=== PATIENT | male | born 1985 | race Caucasian/White ===

== ENCOUNTER 2017-05-05 10:06 | Emergency (ER) | payer OTHER ==
[2017-05-05 10:20] VITALS: BP 156/81
--- NOTE | 2017-05-05 10:23 | ER Document Report ---
Doctor's Note Notes: 05/05/17 10:23
[2017-05-05] MEDS ORDERED: PENICILLIN V POTASSIUM 500 MG TABLET PO ONE (10:30)
[2017-05-05] MEDS ORDERED: OXYCODONE-ACETAMINOPHEN 5-325 MG TABLET PO ONE (10:30)
--- NOTE | 2017-05-05 10:33 | ER Document Report ---
ED Oral Problem - General Chief Complaint: Toothache Stated Complaint: FACE SWELLING, TOOTH PAIN Time Seen by Provider: 05/05/17 10:29 Mode of Arrival: Ambulatory Information source: Patient TRAVEL OUTSIDE OF THE [place] IN LAST 30 DAYS: No COUNTRY TRAVELED TO/FROM: [facility] Patient complains to provider of: Swelling of face, Toothache Onset: Other - 3 days Onset: Gradual Quality of pain: Achy, Dull Severity: Moderate Pain Level: 3 Swollen jaw/face: Mild Associated symptoms: Chills, Dental decay, Toothache Similar symptoms previously: Yes Recently seen / treated by doctor/dentist: No Notes: Patient is a 31-year-old male who presents to the emergency room complaining of toothache with right-sided facial swelling that has been worsening over the past 3 days, he reports symptoms consistent with a fever last night although he did not take his temperature, he does report diffusely poor dentition, however has been unable to afford to follow-up with a dentist, denies any dental injury - Related Data Allergies/Adverse Reactions: No Known Allergies Allergy (Unverified 05/05/17 10:16) Past Medical History - General Information source: Patient - Social History Smoking Status: Current Every Day Smoker Chew tobacco use (# tins/day): No Frequency of alcohol use: None Drug Abuse: None Family History: Reviewed & Not Pertinent Patient has suicidal ideation: No Patient has homicidal ideation: No - Past Medical History Cardiac Medical History: Reports: Hx Hypertension Renal/ Medical History: Denies: Hx Peritoneal Dialysis Surgical Hx: Negative - Immunizations Hx Diphtheria, Pertussis, Tetanus Vaccination: Yes Review of Systems - Review of Systems Constitutional: See HPI EENT: See HPI Cardiovascular: No symptoms reported Respiratory: No symptoms reported Gastrointestinal: No symptoms reported Genitourinary: No symptoms reported Male Genitourinary: No symptoms reported Musculoskeletal: No symptoms reported Skin: No symptoms reported Hematologic/Lymphatic: No symptoms reported Neurological/Psychological: No symptoms reported -: Yes All other systems reviewed and negative Physical Exam - Vital signs Vitals: Temp Pulse Resp BP Pulse Ox 99.2 F 99 16 156/81 H 98 05/05/17 10:17 05/05/17 10:05/05/17 10:05/05/17 10:05/05/17 10:17 - Notes Notes: - General General appearance: Appears well, Alert In distress: None - HEENT Head: Normocephalic, Atraumatic Eyes: Normal Conjunctiva: Normal Extraocular movements intact: Yes Eyelashes: Normal Pupils: PERRL - Respiratory Respiratory status: No respiratory distress - Cardiovascular Rhythm: Regular - Abdominal Inspection: Normal - Back Back: Normal - Extremities General upper extremity: Normal inspection General lower extremity: Normal inspection - Neurological Neuro grossly intact: Yes Orientation: AAOx4 Magda Coma Scale Eye Opening: Spontaneous Magda Coma Scale Verbal: Oriented [place] Coma Scale Motor: Obeys Commands Magda Coma Scale Total: 15 - Psychological Associated symptoms: Normal affect, Normal mood - Skin Skin Temperature: Warm Skin Moisture: Dry Skin Color: Normal - HEENT Mouth/Lips: Caries Mucous membranes: Moist Teeth diagram: 1 - Diffusely poor dentition with multiple caries, blackish colored discoloration to teeth, erythema with gingival swelling fluctuance, no drainage Course - Re-evaluation Re-evalutation: 05/05/17 10:36 Symptoms consistent with dental infection, he was started on antibiotics and provided with pain medication as well as information for follow-up with dental clinics, advised to return if symptoms worsen, patient acknowledges understanding and agreement with this plan - Vital Signs Vital signs: Temp Pulse Resp BP Pulse Ox 99.2 F 99 16 156/81 H 98 05/05/17 10:17 05/05/17 10:17 05/05/17 10:17 05/05/17 10:17 05/05/17 10:17 Discharge - Discharge Clinical Impression: Dental caries Condition: Stable Disposition: HOME, SELF-CARE Instructions: [facility], Oral Narcotic Medication ([facility]), Penicillin V K ([facility]), Toothache ([facility]), Dental Infection or Abscess ([facility]), Dentist Additional Instructions: Follow up with your primary care provider and a dentist in one to 2 days. Return to the emergency room immediately if symptoms worsen or any additional concerns. Prescriptions: Oxycodone HCl/Acetaminophen [Percocet 5-325 mg Tablet] 1 - 2 tab PO ASDIR PRN # 15 tablet PRN Reason: Penicillin V Potassium [Penicillin Vk 500 mg Tablet] 500 mg PO TID #30 tablet Forms: Return to Work
== END 2017-05-05 10:31 | disposition home or self-care (01) ==
LOC: ER 10:06
DX: K02.9 Dental caries, unspecified (principal); K08.89 Other specified disorders of teeth and supporting structures; I10 Essential (primary) hypertension; R22.0 Localized swelling, mass and lump, head; Z59.9 Problem related to housing and economic circumstances, unspecified; F17.200 Nicotine dependence, unspecified, uncomplicated
CPT/HCPCS: 99282